=== PATIENT | female | born 1960 | race Caucasian/White ===

== ENCOUNTER 2019-01-23 09:32 | Inpatient (IN) ==
--- NOTE | 2018-12-15 16:21 | PAT Medication Instructions ---
Medication Instructions Date of Service December 15, 2018 Home Medications hydrochlorothiazide 25 mg PO QAM naproxen 500 mg PO BID PRN ASK your surgeon for instructions naproxen 500 mg PO BID PRN DO NOT take the morning of surgery hydrochlorothiazide 25 mg PO QAM Other Notes If you have any questions please call us at [phone] or [phone] or [phone] or [phone]
--- NOTE | 2018-12-16 14:51 | Anesthesiology Consultation ---
Date of Service December 16, 2018 Assessment & Plan (1) Encounter for pre-operative examination: Chart Review Chart Review: Acceptable Risk for Surgery and Patient seen in Pre Admission Testing Teaching & Discussion Pre-Anesthesia Teaching/Discussion Notes: Instructed NPO after midnight before surgery,except medications with 15 cc of water. Medication instructions provided according to the PAT guidelines. History Surgery Operation Date: 01/23/19 07:00 Proposed Procedures p Right Total Knee Arthroplasty - Ammon Lopez DO Height/Weight Height: 5 ft 5 in Weight: 122.5 kg Allergies Allergy/AdvReac Type Severity Reaction Status Date / Time nickel AdvReac Intermediate "infected/redness Verified 12/16/18 14:47 at site with cheap metals" Additional Notes: *Surgeon/OR aware of nickel allergy* Medications Home Medications Medication Instructions Recorded Confirmed Last Taken hydrochlorothiazide 25 mg PO QAM 12/09/18 12/09/18 Unknown naproxen 500 mg PO BID PRN 12/09/18 12/09/18 Unknown Past Medical History Medical History Morbid obesity Hypertension Osteoarthritis Exercise / Class Metabolic Activity III < 4 Walking/Shop/Light housework Past Family History Family History Son Family history of diabetes mellitus Past Surgical History Surgical History History of bilateral tubal ligation History of colonoscopy History of dilatation and curettage D&E History of tooth extraction Uterine fibroid REMOVED Past Anesthesia History No Family Hx of Anesthesia Complications Patient- *Awareness with colonoscopy* Father- low bp perioperatively (felt related to co-morbidities) History of PONV No Hx of PONV and Hx of Motion Sickness Social History Smoking Status: Never smoker Do You Dip or Chew Tobacco: No Hx Alcohol Use: No Hx Substance Use: No substance use type: does not use Review of Systems Patient denies chest pain, shortness of breath, dyspnea on exertion, reflux, cough, wheezing, palpitations. Physical Exam Vital Signs VITALS BP 157/89 P 67 TEMP 98.1 SP02 95%RA RESP 18 PHYSICAL Full neck and c-spine range of motion. Full TMJ range of motion. TMD 3 finger breaths Mallampati Score 3 Dentition: missing sides/molars Lungs: clear throughout to auscultation Cardiac: regular rate and rhythm, no murmurs noted Spine: normal Carotid arteries: negative bruit Extremities: no edema Testing Laboratory Results 12/16/18 14:56 12/16/18 14:56 PT 9.9 Seconds (9.0-12.0) 12/16/18 14:56 INR 1.0 (0.9-1.1) 12/16/18 14:56 APTT 25.1 Seconds (21.0-31.0) 12/16/18 14:56 Urine Color Yellow 12/16/18 Unknown Urine Appearance Clear (Clear) 12/16/18 Unknown Urine pH 7.0 (4.5-7.5) 12/16/18 Unknown Ur Specific Dante 1.018 (1.000-1.030) 12/16/18 Unknown Urine Protein Negative (Negative) 12/16/18 Unknown Urine Glucose (UA) Negative (Negative) 12/16/18 Unknown Urine Ketones Negative (Negative) 12/16/18 Unknown Urine Nitrite Negative (Negative) 12/16/18 Unknown Ur Leukocyte Esterase Negative (Negative) 12/16/18 Unknown Blood Type A Positive 12/16/18 14:56 Antibody Screen NEGATIVE 12/16/18 14:56 Electrocardiogram Date: 12/16/18 Findings: + NSR @ (73) Chest X-Ray Date: 12/16/18 There is no pneumothorax, pleural effusion, focal airspace consolidation or overt pulmonary edema. Degenerative changes of the shoulders and spine. 2 mm punctate nodular density of the lateral right midlung may reflect a calcified granuloma. No acute process.
--- NOTE | 2018-12-16 15:34 | XRay Report ---
XR chest Pre-admission PA/Lat HISTORY: 58 years-old Female pat preoperative exam. No acute chest complaints COMPARISON: None available TECHNIQUE: PA and lateral views of the chest FINDINGS: Cardiomediastinal and hilar silhouettes are within normal limits. There is no pneumothorax, pleural e ffusion, focal airspace consolidation or overt pulmonary edema. Degenerative changes of the shoulders and spine. 2 mm punctate nodular density of the lateral right midlung may reflect a calcified granul mahsa. IMPRESSION: No acute process. The above report was generated using voice recognition software. It may contain grammatical, syntax o r spelling errors. Electronically signed by: Anthony Serrano M.D. 12/16/2018 3:33 PM
[2018-12-16 16:04] LABS: Basophils # (auto) 0.05 K/uL (0-0.2); Basophils % (auto) 0.6 %; Eosinophils # (auto) 0.28 K/uL (0-0.5); Eosinophils % (auto) 3.4 %; Hemoglobin 14.4 g/dL (12.0-16.0); Immature Granulocytes # (auto) 0.01 K/uL (0.00-0.02); Immature Granulocytes % (auto) 0.1 %; Lymphocytes # (auto) 2.62 K/uL (1.2-3.4); Lymphocytes % (auto) 31.7 %; Mean Corpuscular Hgb Conc 33.5 g/dL (32-36); Mean Corpuscular Volume 88.8 fL (80-100); Mean Platelet Volume 11.9 fL (7.4-10.4); Monocytes # (auto) 0.71 K/uL (0.11-0.59); Monocytes % (auto) 8.6 %; Neutrophils % (auto) 55.6 %; Platelet Count 208 K/uL (130-400); RDW Coefficient of Variation 14.6 % (11.5-14.5); RDW Standard Deviation 47.2 fL (36.4-46.3); Red Blood Count 4.84 M/uL (4.2-5.4); White Blood Count 8.27 K/uL (4.8-10.8)
[2018-12-16 16:08] LABS: Appearance Urine Clear (Clear); Bilirubin Urine Negative (Negative); Blood Urine Negative (Negative); Color Urine Yellow; Glucose Urine UA Negative (Negative); Ketones Urine Negative (Negative); Leukocyte Esterase Urine Negative (Negative); Nitrite Urine Negative (Negative); Protein Urine Negative (Negative); Specific Gravity Urine 1.018 (1.000-1.030); Urobilinogen Urine Negative (Negative)
[2018-12-16 16:12] LABS: BUN Creatinine Ratio 19.2 (10-20); Calcium 9.7 mg/dl (8.5-10.1); Creatinine Clr Calc Pharmacy 100.7 ml/min; Est GFR (African American) 95.8; Est GFR (Non-African American) 82.6; Potassium 3.9 mmol/L (3.5-5.1)
[2018-12-16 16:14] LABS: Partial Thromboplastin Ratio 0.9; Partial Thromboplastin Time 25.1 Seconds (21.0-31.0); Prothrombin Time 9.9 Seconds (9.0-12.0)
--- NOTE | 2019-01-23 06:33 | History & Physical Report ---
Date of Service January 23, 2019 Assessment & Plan (1) Osteoarthritis of right knee: We will proceed with a right total knee arthroplasty. Postoperatively she will be started on aspirin for DVT prophylaxis. She will be kept overnight in the hospital for postoperative medical management. She plans to go to outpatient physical therapy and [facility] with Shayla Jang upon discharge. Present on Admission?: Yes History of Present Illness Chief Complaint: Primary osteoarthritis of the right knee Primary Care Provider: NO PCP Ronak is a pleasant 58-year-old female who is been dealing with chronic increasing right knee pain. X-rays and clinical examination have been diagnostic for primary osteoarthritis of the right knee. After failing conservative treatment, she has elected to proceed with a right total knee arthroplasty. Allergies Allergy/AdvReac Type Severity Reaction Status Date / Time nickel AdvReac Intermediate "infected/redness Verified 12/16/18 14:47 at site with cheap metals" Home Medications Home Medications Medication Instructions Recorded Confirmed Type hydrochlorothiazide 25 mg PO QAM 12/09/18 12/09/18 History naproxen 500 mg PO BID PRN 12/09/18 12/09/18 History Past Med/Surg History Family History Son Family history of diabetes mellitus Social History Preferred Language: Yakut Communication Ability: Effective Deckhand Sponge Boat Required: No Beliefs That Will Affect Care: None Current Living Situation: Family Feels Safe at Home: Yes Smoking Status: Never smoker Second Hand Exposure: No ; Hx Alcohol Use: No Hx Substance Use: No Review of Systems All systems reviewed & are unremarkable except as noted in HPI & below Physical Exam Constitutional: WD/WN, vitals as above Eyes: PERRL, conjunctivae normal, anicteric sclerae ENMT: external ear and nose normal, oropharynx normal Neck: trachea midline, no thyromegaly Respiratory: normal respiratory effort Cardiovascular: RRR, no murmur, no edema Gastrointestinal (Abdomen): normal bowel sounds, soft, nontender, no hepatosplenomegaly Musculoskeletal: On physical examination of the right knee there is a trace effusion. There is near full range of motion and no evidence of instability. There is significant tenderness palpation along the medial and lateral joint lines and over the distal femoral condyles. Psychiatric: A+Ox3, euthymic affect Results & Data Diagnostic Findings Radiographs of the right knee demonstrate advanced osteoarthritis with joint space narrowing osteophyte formation and [id number] articulation.
[~2019-01-23 09:32] MED LIST: ACETAMINOPHEN 500 MG TAB PO SCH; BUPIVACAINE 0.5 % 5 MG/1 ML PF 10ML VIAL ONE; CEFAZOLIN 2000MG 2,000 MG/15 ML SYR IV SCH; CEFAZOLIN 3000MG 65 ML IV SCH; EPINEPHrine INJ 1 MG/ML AMP ONE; FAMOTIDINE 20 MG TAB PO SCH; GABAPENTIN 900 MG DOSE PO SCH; LR 500ML BOLUS, THEN 15ML/HR IV SCH; LR 60ML/HR IV SCH; MIDAZOLAM HCL 1 MG/ML 2ML VIAL ONE; ROPIVACAINE 0.5% 5 MG/ML 30 ML VIAL ONE; ROPIVACAINE 0.5% HCL/PF 150 MG, BUPIVACAINE 0.5% MPF 30 ML, EPINEPHrine 30MG/30ML (OR U... INFIL SCH; TRANEXAMIC ACID 1,000 MG **IV Intra-op IV SCH; TRANEXAMIC ACID 1,000 MG **IV Pre-op IV SCH; fentaNYL citrate 100 MCG/2 ML VIAL ONE
--- NOTE | 2019-01-23 09:58 | History & Physical Bridge Note ---
Date of Service January 23, 2019 History & Physical Bridge Note I have examined the patient, reviewed the History & Physical and in the interval since the performance of the History & Physical I have noted the following changes of clinical significance: no changes noted
[2019-01-23] MEDS ORDERED: ATROPINE SULFATE 0.1 MG/ML 10ML SYR IV PRN (10:35)
[2019-01-23] MEDS ORDERED: ePHEDrine sulfate 50 MG/ML AMP IV PRN (10:35)
[2019-01-23] MEDS ORDERED: ONDANSETRON INJ 2 MG/ML 2 ML VIAL IV PRN ×2 (10:35→15:15)
[2019-01-23] MEDS ORDERED: HYDROmorphone INJ 1 MG/ML SYRINGE IV PRN (10:35)
[2019-01-23] MEDS ORDERED: fentaNYL citrate 100 MCG/2 ML VIAL IV PRN (10:35)
[2019-01-23] MEDS ORDERED: MIDAZOLAM HCL 1 MG/ML 2ML VIAL ONE (11:42)
[2019-01-23] MEDS ORDERED: PROPOFOL IV EMULSION 10 MG/ML 20 ML VIAL IV ONE (11:57)
--- NOTE | 2019-01-23 13:08 | Operative Report ---
Post Operative Report Pre & Post Diagnosis Operation Date: 01/23/19 12:10 Pre-Op Diagnosis: Right Knee Degenerative Joint Disease Post-Op Diagnosis: Right Knee Degenerative Joint Disease Procedure Operation Date: 01/23/19 12:10 Actual Procedures p Right Total Knee Arthroplasty(Right) - Ammon Lopez DO Surgeon Ammon Lopez DO [employer] Architect Ammon [place] PAC Estimated Blood Loss 20 Findings Consistent with Post-Op Diagnosis Specimens Right femoral and tibial bone Complications none Disposition Disposition: Recovery Room Indications Patient is a pleasant 58-year-old female who presented my office with chronic increasing right knee pain. X-rays and clinical examination were diagnostic for primary osteoarthritis of the right knee. After failing conservative treatment, she elected proceed with a right total knee arthroplasty. Description of Procedure Implants used: I used a Biomet Vanguard total knee arthroplasty system with a size 67.5 femur, 71 tibia, 28 patella, and a size 10 PS polyethylene bearing. All components were cemented in place with Palacos G cement. The patient arrived [facility] for the above procedure. There were seen in the preoperative holding area and the operative extremity was identified and signed. There were given a preoperative antibiotic, a spinal anesthetic and an adductor nerve block. There were taken back to the operating room and laid on the table in supine position. There were given basic sedation. The operative knee was then prepped and draped in sterile fashion. A timeout was done, and the patient and the operative extremity was properly identified. A midline incision was made directly over the patella. Dissection was taken down to the extensor mechanism. A subvastus arthrotomy was used. The medial retinaculum was released and the fat pad was mostly left intact. The knee was flexed and the ACL, PCL, and meniscus were removed. A drill was sent down the center of the femoral canal followed by an intramedullary pat. Off that pat a distal femoral cutting block was placed. 9 mm was resected off the distal femur at 5 of valgus. A posterior referencing AP sizing guide was then placed on the distal femur. The femur measured to be a size 67.5. 2 drill holes were placed in 3 of external rotation. A 4-in-1 cutting block was then impacted into place. Anterior posterior and chamfer cuts were then made. The posterior stabilizing box guide was then impacted into place and the box was resected for the posterior stabilizing component. The proximal tibia was then exposed. A drill was sent down the center of the tibial canal followed by an intramedullary pat. Off that pat a proximal tibial resection guide was placed. The proximal tibia was then resected. The tibia measured to be a size 71. The tibial plate was then placed in the appropriate rotation and the tibia was punched. The posterior aspect of the knee was then opened up and any additional meniscus fragments and osteophytes were removed. Trial components were then placed. I used a size 10 PS polyethylene insert. The knee was brought through a full range of motion and felt to be stable. The patella was then everted and 8 mm was resected off the posterior aspect of the patella. The patella measured to be a size 28. 3 peg holes were then drilled. A trial patella was placed. The knee was once again brought through a full range of motion and felt to be stable. Trial components were then removed. The surrounding soft tissues were injected with 100 cc of an orthopedic pain control cocktail. All components were then cemented into place with Palacos G cement. The final polyethylene insert was then snapped into place and the anterior bar was locked. Once cement was dry the tourniquet was deflated. Hemostasis was obtained. A dilute betadyne lavage was then done for 3 minutes. The joint was then irrigated with normal saline solution. The subvastus arthrotomy was then closed with #1 Vicryl suture. The skin was closed with 2-0 Vicryl, 3-0V lock suture, and dylan. A soft compressive dressing was placed. The patient was then transferred to a hospital bed and taken to the postanesthesia care unit in stable condition. They tolerated the procedure well. I attest to the content of the Intraoperative Record and any orders documented therein. Any exceptions are noted below.
--- NOTE | 2019-01-23 13:48 | XRay Report ---
TWO VIEWS RIGHT KNEE CLINICAL HISTORY: Postoperative examination. FINDINGS: AP and crosstable lateral portable views of the right knee are obtained. A right knee arthr oplasty is in near anatomic alignment. There has been undersurface remodeling of the patella. No acut e fracture is seen. There are expected postoperative changes around the knee including skin clips, so ft tissue edema, and subcutaneous gas. IMPRESSION: Expected postoperative changes status post right knee arthroplasty. No acute fracture is seen. Electronically signed by: New Ryan M.D. 01/23/2019 1:47 PM
--- NOTE | 2019-01-23 14:18 | Anesthesiology Progress Note ---
Date of Service January 23, 2019 Anesthesia Post Procedure Vital Signs Vital Signs: Temp Pulse Pulse Resp BP Pulse Ox 01/23/19 14:05 36.4 C L 68 20 130/97 97 01/23/19 13:55 67 21 144/81 H 89 L 01/23/19 13:45 68 19 142/77 H 96 01/23/19 13:35 67 18 122/73 93 01/23/19 13:29 37.0 C 68 21 142/76 H 94 01/23/19 10:14 36.5 C 79 16 173/107 H 94 Transfer of Care Handoff Completed per policy Notes Mental Status: alert / awake / arousable and participated in evaluation Patient Amnestic to Procedure: Yes Nausea / Vomiting: adequately controlled Pain: adequately controlled Airway Patency, RR, SpO2: stable & adequate BP & HR: stable & adequate Hydration State: stable & adequate Neuraxial Anesthesia: was administered and sensory block is resolving Anesthetic Complications: no major complications apparent and Pt Satisfied with anesthetic care
[2019-01-23] MEDS ORDERED: OXYCODONE HCL IR 5 MG TAB (IMMEDIATE RELEASE) PO PRN (15:15)
[2019-01-23] MEDS ORDERED: METOCLOPRAMIDE HCL INJ 5 MG/ML 2 ML VIAL IV PRN (15:15)
[2019-01-23] MEDS ORDERED: BISACODYL 10 MG SUPP PR PRN (15:15)
[2019-01-23] MEDS ORDERED: SODIUM CHLORIDE 0.9% 1000ML 1,000 ML IV SCH (15:15)
[2019-01-23] MEDS ORDERED: NALOXONE HCL 0.4 MG/1 ML VIAL/CARP IV PRN (15:15)
[2019-01-23] MEDS ORDERED: HYDROmorphone INJ 0.5 MG/0.5 ML SYR IV PRN (15:15)
[2019-01-23] MEDS ORDERED: MAGNESIUM HYDROXIDE SUSP 30 ML UDC PO PRN (15:15)
[2019-01-23] MEDS: KETOROLAC 30 MG/ML VIAL IV SCH ×2 (17:04→21:32)
[2019-01-23] MEDS: ACETAMINOPHEN 500 MG TAB PO SCH ×2 (17:04→21:28)
[2019-01-23] MEDS: CEFAZOLIN 2000MG 2,000 MG/15 ML SYR IV SCH (20:09)
[2019-01-23] MEDS: DOCUSATE SODIUM 100 MG CAP PO SCH (20:15)
[2019-01-23] MEDS: ASPIRIN 81 MG ECTAB PO SCH (20:15)
[2019-01-23] MEDS ORDERED: SENNA 8.6 MG TAB PO SCH (21:00)
[2019-01-24] MEDS: ACETAMINOPHEN 500 MG TAB PO SCH (04:56)
[2019-01-24] MEDS: CEFAZOLIN 2000MG 2,000 MG/15 ML SYR IV SCH (04:57)
[2019-01-24] MEDS: KETOROLAC 30 MG/ML VIAL IV SCH ×2 (04:57→10:18)
[2019-01-24 06:04] LABS: Hematocrit (blood only) 38.6 % (37-47); Hemoglobin 12.9 g/dL (12.0-16.0); Mean Corpuscular Hgb Conc 33.4 g/dL (32-36); Mean Corpuscular Volume 88.1 fL (80-100); Mean Platelet Volume 11.4 fL (7.4-10.4); Platelet Count 193 K/uL (130-400); RDW Coefficient of Variation 14.2 % (11.5-14.5); RDW Standard Deviation 46.4 fL (36.4-46.3); Red Blood Count 4.38 M/uL (4.2-5.4); White Blood Count 15.69 K/uL (4.8-10.8)
[2019-01-24 06:33] LABS: BUN Creatinine Ratio 16.7 (10-20); Calcium 8.5 mg/dl (8.5-10.1); Creatinine Clr Calc Pharmacy 119.1 ml/min; Est GFR (African American) 111.3; Potassium 3.6 mmol/L (3.5-5.1)
[2019-01-24] MEDS: DOCUSATE SODIUM 100 MG CAP PO SCH (08:33)
[2019-01-24] MEDS: ASPIRIN 81 MG ECTAB PO SCH (08:34)
--- NOTE | 2019-01-24 08:39 | Orthopedic Progress Note ---
Date of Service January 24, 2019 Assessment & Plan (1) Osteoarthritis of right knee: Overall she is doing very well. She is not having much pain in the right knee. She has already been up and ambulating. She is on aspirin for DVT prophylaxis. She will be seen by physical therapy this morning for ambulation and range of motion exercises. She can be discharged home later today. She will follow-up with orthopedics in 2 weeks. Present on Admission?: Yes Azul Simons was seen and examined at bedside this morning. Overall she is doing very well. She not having much pain in the right knee. She is already been up and ambulating. Her pain is controlled she has no complaints. Physical Exam Musculoskeletal: On physical examination of the right knee, her dressing is clean and dry. She is active dorsiflexion and plantarflexion of her right ankle. Sensations intact. Results & Data Vital Signs (Past 12 Hours) Vital Signs Temp Pulse Resp BP Pulse Ox 01/24/19 07:17 36.5 C 70 16 159/83 H 92 01/24/19 04:00 36.7 C 70 18 156/81 H 92 01/23/19 23:27 36.8 C 72 19 136/74 93 Laboratory Results H & H 12/16/18 01/24/19 Range/Units 14:56 05:08 Hgb 14.4 12.9 (12.0-16.0) g/dL Hct 43.0 38.6 (37-47) % Coagulation 12/16/18 Range/Units 14:56 INR 1.0 (0.9-1.1) Diagnostic Findings Postoperative x-rays of the right knee show the prosthesis to be in anatomic alignment without any evidence of fracture, dislocation, or loosening. PG Care Time/CCT Total # of Minutes Spent Total Time Spent with Patient: Total time spent is greater than 50% in coordination of care (as documented) at patient's floor/unit and/or counseling patient:
--- NOTE | 2019-01-24 08:44 | Discharge Summary ---
Date of Service January 24, 2019 Admission HPI Per Admitting Provider Ronak is a pleasant 58-year-old female who is been dealing with chronic increasing right knee pain. X-rays and clinical examination have been diagnostic for primary osteoarthritis of the right knee. After failing conservative treatment, she has elected to proceed with a right total knee arthroplasty. Principal Diagnosis Right total knee arthroplasty Discharge Data Allergies Allergy/AdvReac Type Severity Reaction Status Date / Time nickel AdvReac Intermediate "infected/redness Verified 12/16/18 14:47 at site with cheap metals" Consultations 01/23/19 15:15 Consult Case Management - Discharge Planning Routine Procedures Performed Operation Date: 01/23/19 12:10 Actual Procedures p Right Total Knee Arthroplasty(Right) - Ammon Lopez DO Ordered Studies 01/23/19 05:00 US - OR guided needle placemen Routine Hospital Course (1) Osteoarthritis of right knee: On January 23, [address] [facility] and underwent a right total knee arthroplasty without complication. She had a spinal anesthetic and a right adductor nerve block. Postoperatively she was started on aspirin for DVT prophylaxis and discharged to general orthopedic [facility]. Her hospital course was uneventful. On postop day #1 her H&H was stable and her pain was well controlled. She was able to participate well with physical therapy doing ambulation and range of motion exercises. She was then discharged to home. She will follow-up with orthopedics in 2 weeks. Total Time Total Time Spent Total Time Spent (In Minutes): 20 Discharge Plan Discharge Items Patient Disposition: Home - Home Health Services Reason For Visit: RIGHT KNEE DEGENERATIVE JOINT DISEASE Discharge Diagnosis: Right total knee arthroplasty Activity: As commented below Non-emergency contact: Surgeon Call non-emergency contact if: your wound has increased redness and your wound has increased drainage Follow-up/Referrals: PCP,NO [Primary Care Provider] - Diet: Regular Addtl Attending Provider Instructions: Activity and Therapy Recommendations: * If you are using [facility] then therapy will be provided at your home until they feel you have accomplished all of your goals. * If you are using [facility] then Physical Therapy will be provided until they feel you are ready to start Outpatient Physical Therapy. * If you are not using home therapy then Outpatient Physical Therapy should start about 3-5 days from your day of surgery. Therapy will last about 6-10 weeks * It is important not to put a pillow under your knee when you are relaxing or sleeping. It is just as important to make sure you are getting your knee perfectly straight as it is to regain your knee bend. * You were shown a series of exercises in the hospital. Do these exercises three times each day including the exercises you were shown in physical therapy. * Get up and walk several times each day. For the first four weeks, try not to stand or walk for more than one hour at a time. If you do stand or walk for more than one hour, you will not hurt anything, but your leg will likely swell. * As you feel comfortable, you may change from the walker or crutches to a cane and then to independent walking. Medications: * Narcotic You will likely be sent home from the hospital with a prescription for the narcotic pain medication that worked best throughout your stay. * Aspirin Most patients will be required to take Aspirin 81mg twice a day for 6 weeks after surgery. This is obtained [id number] and a prescription is not necessary. * Other medications may be prescribed for specific circumstances. If you have any questions, please call the office at . * Resume previous home medications unless otherwise instructed TEDs/Elastic Stockings: The white elastic stockings help limit swelling and prevent blood clots from forming in your legs.~ The more you wear them, the more they work. Wear them for six weeks. Dressing Care: If the incision is not draining then you may leave the dylan open to air. If there is a little bit of drainage or if the dylan are getting stuck on your clothing then cover the incision with a dry dressing. The dylan will be removed at your 2 week follow-up appointment. Showering: You may shower 5 days from the day of surgery. Let the soapy shower water run over the dylan and pat them dry. Do not scrub or soak the incision. Things To Watch For: * Drainage from the incision site that occurs more than one week after your surgery. * Increased redness at the incision site. * Fever above 102 degrees Fahrenheit. * Unusual chest pain or shortness of breath. * Call [facility] at with any of the above probl ems Follow-Up Visit: Follow-up with Dr. Lopez 2-3 weeks after your day of surgery. An appointment was probably scheduled when you signed-up for surgery in the office. If you have any questions call Office Instructions: More detailed instructions as well as Frequently Asked Questions were provided in a folder by our office when you signed-up for surgery. Please review these instructions when you get home. If you have any further questions or concerns, please feel free to call the office at [phone] Pending Studies at Discharge: No Stand-Alone Forms: [facility] Medications and DC Order Prescriptions: New oxycodone 5 mg Tablet 5 mg PO Q4H PRN (Reason: pain) Qty: 40 RF: 0 aspirin [Ecotrin Low Strength] 81 mg Tablet,Delayed Release (Dr/Ec) 81 mg PO BID Qty: 84 RF: 0 Continued hydrochlorothiazide 25 mg Tablet 25 mg PO QAM RF: 0 naproxen 500 mg Tablet 500 mg PO BID PRN (Reason: Pain) RF: 0 Discharge Orders: Discharge Order (Routine); Ordered 01/24/19 Ordered By: Ammon Lopez Admission Data Admit Date/Time: 01/23/19 13:30 Attending Provider: Ammon Lopez Admit Provider: Ammon Lopez Primary Care Provider: PCPDANIEL
[2019-01-24] MEDS ORDERED: hydroCHLOROthiazide 25 MG TAB PO SCH (09:00)
[2019-01-24] MEDS ORDERED: MULTIVITAMIN TAB PO SCH (09:00)
== END 2019-01-24 12:42 | disposition home or self-care (01) | DRG 470 ==
LOC: ASU 09:32 → 3E 13:30
DX: E66.01 Morbid (severe) obesity due to excess calories; Z68.42 Body mass index [BMI] 45.0-49.9, adult; Z79.899 Other long term (current) drug therapy; M17.11 Unilateral primary osteoarthritis, right knee; I10 Essential (primary) hypertension